=== PATIENT | female | born 2000 | race Caucasian/White ===

== ENCOUNTER 2022-05-23 17:36 | Emergency (ER) | payer MEDICAID ==
[~2022-05-23] VITALS: Ht 147.3 cm; Wt 43.6 kg
[2022-05-23 17:49] VITALS: BP 106/55
[2022-05-23] MEDS ORDERED: PREN-155 PO (17:50)
[2022-05-23] MEDS ORDERED: AMOX1TAB16 PO (20:29)
== END 2022-05-23 20:45 | disposition home or self-care (01) ==
LOC: EMS 17:43
DX: S70.372A Other superficial bite of left thigh, initial encounter (principal); W54.0XXA Bitten by dog, initial encounter; Y93.89 Activity, other specified; Y92.89 Other specified places as the place of occurrence of the external cause; Y99.8 Other external cause status
CPT/HCPCS: 99283